=== PATIENT | male | born 1975 | race Caucasian/White ===

== ENCOUNTER → 2017-02-09 | Day surgery (SDC) | payer OTHER ==
[~2017-02-09] VITALS: Ht 175.3 cm; Wt 79.4 kg
[2017-02-09] VITALS (11 sets, daily range): BP systolic 109–135; BP diastolic 64–85
[~2017-02-09] MED LIST: Alfentanil 2ml Inj ONE; Atropine Inj 1mg/10ml Syr IV PRN; BUPROPION XL150 MG ORAL; BUTALBITAL25 GM MC; Bupivacaine w/Epi 0.25% 30ml Vial INJ ONE; CARISOPRODOL250 MG ORAL; CLONAZEPAM1 MG PO; D5 1/2NS 1,000 ML IV SCH; DESMOPRESSIN IV ONE; DIOVAN320 MG ORAL; Desmopressin (DDAVP) Inj IV ONE; Dexamethasone 4mg/ml vial ONE; DiphenhydrAMINE 50mg/ml Inj IVP PRN; EPINEPHrine 1mg/1ml Amp ONE; HYDROmorphone 1mg/ml Carpuject SUBQ PRN; Hydromorphone 0.5mg/0.5ml inj IVP PRN; Ketorolac 30mg Inj IV PRN; Ketorolac 60mg Inj IV PRN; LORazepam Inj 2mg/ml 1ml IV PRN; LR 1000ml 1,000 ML IVLG SCH; LR 1000ml ONE; Lidocaine 1% MPF 10mg/ml 5ml ONE; Meperidine 25mg/ml Inj IV PRN; Metoclopramide 10mg/2ml Inj IVP PRN; Midazolam 2mg/2ml Inj IVP PRN; Midazolam 2mg/2ml Inj ONE; NABUMETONE500 MG PO; NS IV ONE; NS Irrig 4000ml IRRIG ONE; PRAZOSIN HCL5 MG PO; Propofol 10mg/ml 20ml IV ONE; Ropivacaine 5mg/ml Vial 20ml INJ ONE; Sterile Water Irrig 1000ml IRRIG ONE; TRILEPTAL600 MG PO; ceFAZolin 1gm in D5W 55ml IVPB ONE; celeBREX 200mg Cap **SURGERY PATIENTS ONLY ORAL ONE; fentaNYL 100 mcg/2 mL IV PRN; oxyCONTIN 20mg tab ORAL ONE
--- NOTE | 2017-02-09 12:24 | Anethesia Preoperative Eval ---
Anesthesia Pre-op PMH/ROS General Date of Evaluation: Feb 09, 2017 Time of Evaluation: 13:17 Anesthesiologist: Cha ASA Score: ASA 2 Mallampati Score Class I : Soft palate, uvula, fauces, pillars visible Class II: Soft palate, uvula, fauces visible Class III: Soft palate, base of uvula visible Class IV: Only hard plate visible Mallampati Classification: Class II Surgeon: Toñito Diagnosis: R Shoulder Pain Surgical Procedure: R Shoulder Arthroscopy and Rotator cuff Repair Anesthesia History: none Family History: no anesthesia problems Allergies: Coded Allergies: ACETAMINOPHEN (Verified Allergy, Unknown, 02/08/17) Medications: see eMAR Past Medical History Neurologic/Psychiatric: Reports: depression/anxiety PSxH Narrative: R Shoulder SX Anesthesia Pre-op Phys. Exam Physician Exam Last Vital Signs Date Time Temp Pulse Resp B/P Pulse Ox O2 Delivery O2 Flow Rate FiO2 02/09/17 12:03 97.5 90 18 135/85 97 Room Air Constitutional: NAD Neurologic: CN 2-12 intact Cardiovascular: RRR Respiratory: CTA Gastrointestinal: S/NT/ND Airway Exam Mallampati Score: Class II MO: full ROM: limited Teeth: intact Anesthesia Pre-op A/P Risk Assessment & Plan Assessment: ASA 2 Plan: GA, BIS, R Supraclavicular Block Status Change Before Surgery: No Pre-Antibiotics Dru Gram Ancef IV Given Within 1 Hr of Incision: Yes Time Given: 13:41 Werner Eubanks MD Feb 09, 2017 12:24
--- NOTE | 2017-02-09 12:25 | Immediate Post-Op Evaluation ---
Immediate Post-Op Evalulation Immediate Post-Op Evalulation Procedure: R Shoulder Arthroscopy and Rotator cuff Repair Date of Evaluation: Feb 09, 2017 Time of Evaluation: 15:45 IV Fluids: 1000 LR Blood Products: 0 Estimated Blood Loss: 7 Urinary Output: 0 Blood Pressure Systolic: 122 Blood Pressure Diastolic: 68 Pulse Rate: 84 Respiratory Rate: 16 O2 Sat by Pulse Oximetry: 100 Temperature (Fahrenheit): 98.5 Pain Score (1-10): 1 Nausea: No Vomiting: No Complications 0 Patient Status: awake, reacts, patent, extubated, none Hydration Status: adequate Dru Gram Ancef IV Given Within 1 Hr of Incision: Yes Time Given: 13:41 Werner Eubanks MD Feb 09, 2017 12:25
--- NOTE | 2017-02-09 13:54 | Pre-Procedure Note/Attestation ---
Pre-Procedure Note/Attestation Complete Prior to Procedure Planned Procedure: right Procedure Narrative: shoulder disgnostic arthroscopy, RC repair, possible labral repair, sad Indications for Procedure Pre-Operative Diagnosis: right shoulder RCT Attestation I attest that I discussed the nature of the procedure; its benefits; risks and complications; and alternatives (and the risks and benefits of such alternatives ), prior to the procedure, with the patient (or the patient's legal sales representative gas service). I attest that, if there was a reasonable possibility of needing a blood transfusion, the patient (or the patient's legal sales representative gas service) was given the [facility] standardized written summary, pursuant to the [place] Blood Safety Act ([place] Health and Safety Code # 1645, as amended). I attest that I re-evaluated the patient just prior to the surgery and that there has been no change in the patient's H&P, except as documented below: SULEMA JOSE Feb 09, 2017 13:54
--- NOTE | 2017-02-09 13:55 | Operative Note - PDOC ---
Operative Note Operative Note Pre-op Diagnosis: right shoulder RCT Procedure: see op report Post-op Diagnosis: same as pre-op Operative Findings: consistent w/pre-op dx studies Anesthesia: regional Specimen: none Complications: none Condition: stable Estimated Blood Loss: none Implant(s) used?: Yes SULEMA JOSE Feb 09, 2017 13:55
--- NOTE | 2017-02-09 14:05 | 48 Hour Post Anesthesia Eval ---
Post Anesthesia Evaluation Procedure: R Shoulder Arthroscopy and Rotator cuff Repair Date of Evaluation: Feb 09, 2017 Time of Evaluation: 17:56 Blood Pressure Systolic: 131 0: 79 Pulse Rate: 82 Respiratory Rate: 18 Temperature (Fahrenheit): 98.6 O2 Sat by Pulse Oximetry: 98 Airway: patent Nausea: No Vomiting: No Pain Intensity: 1 Hydration Status: adequate Cardiopulmonary Status: Stable Mental Status/LOC: patient returned to baseline Follow-up Care/Observations: 0 Post-Anesthesia Complications: 0 Follow-up care needed: ready to discharge Werner Eubanks MD Feb 09, 2017 14:05
--- NOTE | 2017-02-10 00:58 | Operative Note - Dictated ---
DATE OF OPERATION: 02/09/2017 PREOPERATIVE DIAGNOSES: 1. Right shoulder rotator cuff tear. 2. Right shoulder possible labral tear. POSTOPERATIVE DIAGNOSIS: 1. Tear in anterior labrum. 2. Full-thickness rotator cuff tear. 3. Hypertrophic bursal tissue. PROCEDURES: 1. Right shoulder arthroscopic rotator cuff repair. 2. Extensive debridement of right shoulder. 3. Subacromial decompression bursectomy. SURGEON: Krishna Sibley M.D. ANESTHESIA: Interscalene with general. INDICATION FOR PROCEDURE: The patient is a pleasant gentleman, who has had significant right shoulder pain after being involved in an accident. He had an MRI, which showed concern for a full-thickness rotator cuff tear. He elected to undergo right shoulder arthroscopy and revision of rotator cuff repair. Risks, limitations, expectations, and complications of the procedure were discussed in detail. All questions were addressed. DESCRIPTION OF PROCEDURE: An informed consent was obtained. The patient was taken to the operative room and placed under interscalene general anesthesia. The patient was then carefully placed in the beach-chair position. The right shoulder was prepped and draped in a sterile manner. Time-out was performed. The portal sites were injected with 0.25% Marcaine with epinephrine. Inferolateral stab incision then made. Trocar was introduced into glenohumeral joint. There was some of the chondral damage, anterior labrum with subscap. The under surface of the rotator cuff was completely torn off the bone. At this point, the shaver was then placed in the lateral portal. The intra-articular debridement of the intra-articular labrum and biceps tendon was performed. Once that was done, the tissue or the bone lateral to the articular margin was debrided with soft tissue. Camera was then repositioned into the subacromial space. A complete bursectomy was performed. The bursal side of the rotator cuff. Gilbert was then placed. The mattress sutures were then placed along the lateral lower ankle. Once that was completed, the rotator cuff moved as a unit. Camera was repositioned into his shoulder joint and it seemed like the footprint was recreated. At this point, the instruments were removed. Portal sites were closed with 3-0 Monocryl suture. Steri-Strips and sterile dressing were applied. The patient was awoken and taken to the recovery room with stable vital signs. ESTIMATED BLOOD LOSS: Minimal. COMPLICATIONS: None. SPECIMENS: None. IMPLANTS: Include Biomet rotator cuff anchors. Krishna Sibley M.D. DR: DORINA JOB#: [id number] CC:
== END | disposition home or self-care (01) ==
LOC: SUR 11:15
DX: S46.011A Strain of muscle(s) and tendon(s) of the rotator cuff of right shoulder, initial encounter (principal); S43.431A Superior glenoid labrum lesion of right shoulder, initial encounter; V43.62XA Car passenger injured in collision with other type car in traffic accident, initial encounter; Y92.410 Unspecified street and highway as the place of occurrence of the external cause; Y99.9 Unspecified external cause status; D68.0 Von Willebrand disease; F39 Unspecified mood [affective] disorder; I10 Essential (primary) hypertension; F32.9 Major depressive disorder, single episode, unspecified; F41.9 Anxiety disorder, unspecified; Z88.6 Allergy status to analgesic agent
CPT/HCPCS: 29826; 29827; C1713; J0171; J0690; J1100; J1170; J2250; J2405; J2597; J2704; J2795; J3490; J7120; 94003; 94150

== ENCOUNTER → 2017-04-06 | Day surgery (SDC) | payer OTHER ==
[2017-04-06] VITALS (9 sets, daily range): BP systolic 104–123; BP diastolic 51–67
[~2017-04-06] VITALS: Ht 175.3 cm; Wt 78.5 kg
[~2017-04-06] MED LIST changes: -Dexamethasone 4mg/ml vial ONE; +Dexamethasone Elixir 0.25mg/2.5ml ONE; +HYDROMORPHONE HC4 M1 PO; +Meperidine 25mg/0.5ml Inj IV PRN; -Meperidine 25mg/ml Inj IV PRN; +Norco 5mg/325mg tab ORAL PRN; +OXYCONTIN30 MG ORAL; +SYNTHROID137 MCG ORAL; -Sterile Water Irrig 1000ml IRRIG ONE; +Tylenol #3 tab (300mg/30mg) ORAL PRN; +ceFAZolin 1gm in D5W 55ml IVP ONE; -ceFAZolin 1gm in D5W 55ml IVPB ONE
--- NOTE | 2017-04-06 11:16 | Anethesia Preoperative Eval ---
Anesthesia Pre-op PMH/ROS General Date of Evaluation: Apr 06, 2017 Time of Evaluation: 14:43 Anesthesiologist: Cha ASA Score: ASA 3 Mallampati Score Class I : Soft palate, uvula, fauces, pillars visible Class II: Soft palate, uvula, fauces visible Class III: Soft palate, base of uvula visible Class IV: Only hard plate visible Mallampati Classification: Class II Surgeon: Toñito Diagnosis: L Shoulder Pain Surgical Procedure: L Shoulder Atrhroscopy Anesthesia History: none Family History: no anesthesia problems Allergies: Coded Allergies: ACETAMINOPHEN (Verified Allergy, Unknown, 02/08/17) Medications: see eMAR Past Medical History Endocrine: Reports: hypothyroidism Hematology/Immune: Reports: other - Von Willebrands, Thyroid CA PSxH Narrative: Cervical Spine SX, R Shoulder RCR, Thyroidectomy Anesthesia Pre-op Phys. Exam Physician Exam Last Vital Signs Date Time Temp Pulse Resp B/P Pulse Ox O2 Delivery O2 Flow Rate FiO2 04/06/17 10:56 97.2 80 20 112/67 96 Room Air Constitutional: NAD Neurologic: CN 2-12 intact Cardiovascular: RRR Respiratory: CTA Gastrointestinal: S/NT/ND Airway Exam Mallampati Score: Class II MO: limited ROM: limited Teeth: intact Anesthesia Pre-op A/P Risk Assessment & Plan Assessment: ASA 3 Plan: GA, BIS, L Supraclavicular Block Status Change Before Surgery: No Pre-Antibiotics Dru Grams Ancef IV Given Within 1 Hr of Incision: Yes Time Given: 15:16 Werner Eubanks MD Apr 06, 2017 11:15
--- NOTE | 2017-04-06 14:16 | Pre-Procedure Note/Attestation ---
Pre-Procedure Note/Attestation Complete Prior to Procedure Planned Procedure: left Procedure Narrative: shoulder arthroscopy, p[ossible labral repair, possible rc repair Indications for Procedure Pre-Operative Diagnosis: left shoulder labral tear, left shoulder rct Attestation I attest that I discussed the nature of the procedure; its benefits; risks and complications; and alternatives (and the risks and benefits of such alternatives ), prior to the procedure, with the patient (or the patient's legal major account representative). I attest that, if there was a reasonable possibility of needing a blood transfusion, the patient (or the patient's legal major account representative) was given the [facility] standardized written summary, pursuant to the Bony [place] Blood Safety Act ([place] Health and Safety Code # 1645, as amended). I attest that I re-evaluated the patient just prior to the surgery and that there has been no change in the patient's H&P, except as documented below: SULEMA JOSE Apr 06, 2017 14:16
--- NOTE | 2017-04-06 15:34 | Immediate Post-Op Evaluation ---
Immediate Post-Op Evalulation Immediate Post-Op Evalulation Procedure: L Shoulder Arthroscopy Date of Evaluation: Apr 06, 2017 Time of Evaluation: 16:59 IV Fluids: 1200 LR Blood Products: 0 Estimated Blood Loss: 7 Urinary Output: 0 Blood Pressure Systolic: 106 Blood Pressure Diastolic: 56 Pulse Rate: 80 Respiratory Rate: 16 O2 Sat by Pulse Oximetry: 98 Temperature (Fahrenheit): 98.4 Pain Score (1-10): 1 Nausea: No Vomiting: No Complications 0 Patient Status: awake, reacts, patent, extubated, none Hydration Status: adequate Dru Grams Ancef IV Given Within 1 Hr of Incision: Yes Time Given: 15:16 Werner Eubanks MD Apr 06, 2017 15:34
--- NOTE | 2017-04-06 16:36 | Operative Note - PDOC ---
Operative Note Operative Note Pre-op Diagnosis: left shoulder labral tear, left shoulder rct Procedure: see op report Post-op Diagnosis: same as pre-op plus Operative Findings: consistent w/pre-op dx studies Anesthesia: general Specimen: none Complications: none Condition: stable Estimated Blood Loss: none Implant(s) used?: Yes SULEMA JOSE Apr 06, 2017 16:36
--- NOTE | 2017-04-06 16:51 | 48 Hour Post Anesthesia Eval ---
Post Anesthesia Evaluation Procedure: L Shoulder Arthroscopy Date of Evaluation: Apr 06, 2017 Time of Evaluation: 19:11 Blood Pressure Systolic: 124 0: 76 Pulse Rate: 82 Respiratory Rate: 18 Temperature (Fahrenheit): 98.6 O2 Sat by Pulse Oximetry: 99 Airway: patent Nausea: No Vomiting: No Pain Intensity: 1 Hydration Status: adequate Cardiopulmonary Status: Stable Mental Status/LOC: patient returned to baseline Follow-up Care/Observations: 0 Post-Anesthesia Complications: 0 Follow-up care needed: ready to discharge Werner Eubanks MD Apr 06, 2017 16:51
--- NOTE | 2017-04-07 01:00 | Operative Note - Dictated ---
DATE OF OPERATION: 04/06/2017 PREOPERATIVE DIAGNOSES: 1. Left shoulder labral tear. 2. Left shoulder partial rotator cuff tear. 3. Impingement syndrome. POSTOP DIAGNOSES: 1. Left shoulder labral tear. 2. Left shoulder partial rotator cuff tear. 3. Impingement syndrome. PROCEDURE: 1. Left shoulder diagnostic arthroscopy. 2. Extensive intra-articular debridement. 3. Left shoulder SLAP repair. 4. Left shoulder subacromial decompression bursectomy. SURGEON: Krishna Sibley M.D. ANESTHESIA: Interscalene with general. INDICATION FOR PROCEDURE: The patient is a pleasant gentleman who has left shoulder pain. The patient subsequently failed conservative treatment and elected to undergo left shoulder arthroscopic diagnostic arthroscopy and possible SLAP repair with concurrent subacromial decompression bursectomy. Risks, limitations, expectations and complication of the procedure were discussed in detail. All questions were addressed. DESCRIPTION OF PROCEDURE: An informed consent was obtained. The patient was brought to the operating room and placed under monitored anesthesia control and general interscalene anesthesia block placed. The patient was carefully positioned under beach chair position. Left shoulder prepped and draped in a sterile manner. Time-out was performed. The portal sites injected with 0.25% Marcaine with epinephrine. Inferolateral stab incision then made. Trocar introduced in the glenohumeral joint. Of note, there is a tear in the superior labral detachment of the superior labrum with positive peel back sign. The anterior labrum appeared to be intact. The biceps tendon and the undersurface of the rotator cuff was grossly intact. No intra-articular loose bodies. At this point, a trocar was placed through the rotator interval. The superior glenoid was debrided of any soft tissues. Arthroscopic anchor was then placed and the superior labrum was reattached to the glenoid. Once that was done, the superior glenoid was again probed and noted to be stable. Posterior labrum was intact. At this point, the camera was placed in subacromial space. There was hypertrophic bursal tissue. The acromion was indenitified. Undersurface of the acromion was identified and acromioplasty starting from lateral to medial and completed from the posterior to anterior. Once that was done, the bursectomy was completed at the anterior lateral and posterior aspect of the subdeltoid space. Once that was done, the bursal side of the rotator cuff was evaluated and noted to be intact. At this point, the instruments removed. Portal sites were closed with 3-0 Monocryl sutures. Steri-Strips and a sterile dressing were applied. The patient was awoken and taken to recovery room with stable signs. ESTIMATED BLOOD LOSS: Minimal. COMPLICATION: None. SPECIMENS: None. IMPLANTS: Biomet Juggernaut anchor . Krishna Sibley M.D. DR: Kaylah JOB#: [id number] CC: WILLIE
--- NOTE | 2017-04-09 22:31 | Pre-op HX & Phy Repo 2 SIG ---
DATE OF ADMISSION: 04/06/2017 PREOPERATIVE MEDICAL CLEARANCE HISTORY OF PRESENT ILLNESS: The patient is a pleasant gentleman, who is well known to me. He underwent a right shoulder arthroscopic rotator cuff repair approximately 6 weeks ago. At that time, he was medically cleared by Dr. Gross. The patient reports that since his last surgery, really no significant changes in his medical status. He recently underwent a hand surgery, which he had no issues for. He was seen by medical doctor for that surgery. He also had a resection of the thyroid prior to that. He had no issues with clearance for in either the thyroid surgery or the hand surgery. He is now here for his left shoulder arthroscopic procedure. The patient does have pain and discomfort in the left arm and shoulder. The patient denies any chest pain. No shortness of breath. PAST MEDICAL HISTORY: Depression, hypertension, and Von Willebrand syndrome. PAST SURGICAL HISTORY: Right shoulder arthroscopic procedure x2, left hand surgery, previous second digit amputation. FAMILY HISTORY: Significant for Graves disease and hypertension. SOCIAL HISTORY: The patient is . Does not smoke or drink. He lives in [place]. PHYSICAL EXAMINATION: GENERAL: The patient is alert and oriented in bed. HEART: Regular rate and rhythm. ABDOMEN: Soft. EXTREMITIES: Right shoulder incisions are clean, dry, and intact. Left shoulder examination shows pain on the anteriorlateral of the acromion process. Positive [place] test and positive impingement sign. ASSESSMENT: Left shoulder superior labral from anterior to posterior tear. DISCUSSION: At this point, he really has many medical changes in his history prior to this procedure. He had 2 additional surgeries for which he got medical clearance for with no issues. Therefore, it is not medically reasonable to repeat his preop medical clearance at this point. We are going to continue with the same recommendations previously given by Dr. Gross for his right shoulder. We are going to give him DDAVP prior to surgery. The patient understands that I am not a medical doctor and medical evaluation is not part of my normal routine, however, in this case, I feel comfortable enough to proceed with surgery based on the fact and he reports anyway no issues with his 2 previous surgeries just recently and he has no other medical issues lately. Krishna Sibley M.D. DR: ILAN JOB#: [id number] CC: WILLIE
== END | disposition home or self-care (01) ==
LOC: SUR 10:21
DX: S43.432A Superior glenoid labrum lesion of left shoulder, initial encounter (principal); X58.XXXA Exposure to other specified factors, initial encounter; Y92.89 Other specified places as the place of occurrence of the external cause; Y99.9 Unspecified external cause status; M75.102 Unspecified rotator cuff tear or rupture of left shoulder, not specified as traumatic; M75.42 Impingement syndrome of left shoulder; I10 Essential (primary) hypertension; D68.0 Von Willebrand disease; E89.0 Postprocedural hypothyroidism; Z85.850 Personal history of malignant neoplasm of thyroid; F32.9 Major depressive disorder, single episode, unspecified; Z88.6 Allergy status to analgesic agent
CPT/HCPCS: 29807; 29826; J0171; J0690; J2250; J2405; J2597; J2704; J2795; J3490; J7120; 94003; 94150; C1713

== ENCOUNTER 2017-05-21 05:25 | Inpatient (IN) | payer OTHER ==
[2017-05-18 14:48] LABS: ANION GAP 8 (5-15); CALCIUM 9.5 mg/dL (8.6-10.2); CARBON DIOXIDE 32 mEQ/L (20-30); CHLORIDE 93 mEQ/L (98-107); CREATININE 1.2 mg/dL (0.7-1.2); GLOMERULAR FILTRATION RATE > 60 mL/min (>60); HEMOLYSIS 3; POTASSIUM 4.9 mEQ/L (3.4-4.9); SODIUM 133 mEQ/L (135-145)
[2017-05-21] VITALS (21 sets, daily range): BP systolic 110–139; BP diastolic 59–79
[~2017-05-21] VITALS: Ht 175.3 cm; Wt 77.1 kg
[~2017-05-21 05:25] MED LIST changes: -Alfentanil 2ml Inj ONE; -Atropine Inj 1mg/10ml Syr IV PRN; -Bupivacaine w/Epi 0.25% 30ml Vial INJ ONE; -D5 1/2NS 1,000 ML IV SCH; -DESMOPRESSIN IV ONE; -Desmopressin (DDAVP) Inj IV ONE; -Dexamethasone Elixir 0.25mg/2.5ml ONE; -DiphenhydrAMINE 50mg/ml Inj IVP PRN; -EPINEPHrine 1mg/1ml Amp ONE; -HYDROmorphone 1mg/ml Carpuject SUBQ PRN; -Hydromorphone 0.5mg/0.5ml inj IVP PRN; -Ketorolac 30mg Inj IV PRN; -Ketorolac 60mg Inj IV PRN; -LORazepam Inj 2mg/ml 1ml IV PRN; -LR 1000ml 1,000 ML IVLG SCH; -LR 1000ml ONE; -Lidocaine 1% MPF 10mg/ml 5ml ONE; -Meperidine 25mg/0.5ml Inj IV PRN; -Metoclopramide 10mg/2ml Inj IVP PRN; -Midazolam 2mg/2ml Inj IVP PRN; -Midazolam 2mg/2ml Inj ONE; -NS IV ONE; -NS Irrig 4000ml IRRIG ONE; -Norco 5mg/325mg tab ORAL PRN; -Propofol 10mg/ml 20ml IV ONE; -Ropivacaine 5mg/ml Vial 20ml INJ ONE; -Tylenol #3 tab (300mg/30mg) ORAL PRN; -ceFAZolin 1gm in D5W 55ml IVP ONE; -celeBREX 200mg Cap **SURGERY PATIENTS ONLY ORAL ONE; -fentaNYL 100 mcg/2 mL IV PRN; -oxyCONTIN 20mg tab ORAL ONE
[2017-05-21] MEDS ORDERED: Dexamethasone 4mg/ml vial IVP ONE (06:00)
[2017-05-21] MEDS ORDERED: ceFAZolin 1gm in D5W 55ml IVP ONE (06:00)
[2017-05-21] MEDS ORDERED: DESMOPRESSIN IV ONE (06:30)
[2017-05-21] MEDS ORDERED: NS IV ONE (06:30)
[2017-05-21] MEDS ORDERED: Propofol 10mg/ml 100ml btl IV ONE (07:00)
[2017-05-21] MEDS ORDERED: Thrombin 5000 units TOPIC ONE (07:00)
[2017-05-21] MEDS ORDERED: Glycopyrrolate 0.2mg/ml 1ml Vial ONE (07:00)
[2017-05-21] MEDS ORDERED: Lidocaine 1% MPF 10mg/ml 5ml ONE (07:00)
[2017-05-21] MEDS ORDERED: Sterile Water Irrig 1000ml IRRIG ONE (07:00)
[2017-05-21] MEDS ORDERED: Lidocaine 1% Plain 30 ml INJ ONE (07:00)
[2017-05-21] MEDS ORDERED: Vancomycin 1gm inj IVPB ONE (07:00)
[2017-05-21] MEDS ORDERED: fentaNYL 250mcg/5ml ONE (07:00)
[2017-05-21] MEDS ORDERED: LR 1000ml ONE (07:00)
[2017-05-21] MEDS ORDERED: Bacitracin 50000 Units Vial IRRIG ONE (07:00)
[2017-05-21] MEDS ORDERED: NS Irrig 1000ml ONE (07:00)
[2017-05-21] MEDS ORDERED: Surgicel 4in x 8in TOPIC ONE (07:00)
[2017-05-21] MEDS ORDERED: Zemuron 50mg/5ml Inj ONE (07:00)
[2017-05-21] MEDS ORDERED: Neostigmine 1mg/ml 10ml Inj ONE (07:00)
[2017-05-21] MEDS ORDERED: Zemuron 50mg/5ml Inj IV ONE (07:00)
[2017-05-21] MEDS ORDERED: fentaNYL 100 mcg/2 mL IV ONE (07:00)
[2017-05-21] MEDS ORDERED: LR 1000ml 1,000 ML IVLG SCH (07:11)
--- NOTE | 2017-05-21 07:13 | Anethesia Preoperative Eval ---
Anesthesia Pre-op PMH/ROS General Date of Evaluation: May 21, 2017 Time of Evaluation: 07:06 Anesthesiologist: Cha ASA Score: ASA 3 Mallampati Score Class I : Soft palate, uvula, fauces, pillars visible Class II: Soft palate, uvula, fauces visible Class III: Soft palate, base of uvula visible Class IV: Only hard plate visible Mallampati Classification: Class II Surgeon: Faizan Diagnosis: Neck Pain Surgical Procedure: ACDF C4-5, C5-6 Anesthesia History: none Family History: no anesthesia problems Allergies: Coded Allergies: ACETAMINOPHEN (Verified Allergy, Unknown, 02/08/17) Medications: see eMAR Past Medical History Cardiovascular: Reports: HTN Endocrine: Reports: hypothyroidism - Throid CA Hematology/Immune: Reports: bleeding disorder - Von Willebrands PSxH Narrative: Thyroidectomy, Cervical SX X2, R Shoulder, L hand SX Anesthesia Pre-op Phys. Exam Physician Exam Last Vital Signs Date Time Temp Pulse Resp B/P Pulse Ox O2 Delivery O2 Flow Rate FiO2 05/21/17 05:56 98.4 79 20 139/64 97 Room Air Constitutional: NAD Neurologic: CN 2-12 intact Cardiovascular: RRR Respiratory: CTA Gastrointestinal: S/NT/ND Airway Exam Mallampati Score: Class II MO: full ROM: limited Teeth: intact Anesthesia Pre-op A/P Risk Assessment & Plan Assessment: ASA 3 Plan: GA, BIS, Glidescope, DDAVP 1/2 hr pre surgery Status Change Before Surgery: No Pre-Antibiotics Dru Grams Ancef IV Given Within 1 Hr of Incision: Yes Time Given: 07:16 Werner Ebuanks MD May 21, 2017 07:13
[2017-05-21] MEDS ORDERED: oxyCODONE HCL/Acetaminophen 5/325mg ORAL PRN (07:15)
[2017-05-21] MEDS ORDERED: Meperidine 25mg/0.5ml Inj (FOR RIGORS ONLY) IV PRN (07:15)
[2017-05-21] MEDS ORDERED: Ketorolac 30mg Inj IV PRN (07:15)
[2017-05-21] MEDS ORDERED: Atropine Inj 1mg/10ml Syr IV PRN (07:15)
[2017-05-21] MEDS ORDERED: Norco 5mg/325mg tab ORAL PRN (07:15)
[2017-05-21] MEDS ORDERED: Norco 7.5mg/325mg tab ORAL PRN (07:15)
[2017-05-21] MEDS ORDERED: DiphenhydrAMINE 50mg/ml Inj IVP PRN (07:15)
[2017-05-21] MEDS ORDERED: fentaNYL 100 mcg/2 mL IV PRN (07:15)
[2017-05-21] MEDS ORDERED: Metoclopramide 10mg/2ml Inj IVP PRN (07:15)
[2017-05-21] MEDS ORDERED: Ketorolac 60mg Inj IV PRN (07:15)
--- NOTE | 2017-05-21 07:29 | Pre-Procedure Note/Attestation ---
Pre-Procedure Note/Attestation Complete Prior to Procedure Planned Procedure: not applicable Procedure Narrative: ADR C4-C5, possible ACDF possible ACDF C5-6 Excision pseudarthrosis C6-7, ACDF Possible osterior lateral mass instrumentation C5-6-7 Possible Anterior plate fixation C6-C7, Possible C5-6-7 Indications for Procedure Pre-Operative Diagnosis: HNP C4-5 Trauma Possible fx post trauma fx adr C5-6 Fx Pseudarthrosis C6-7 Attestation I attest that I discussed the nature of the procedure; its benefits; risks and complications; and alternatives (and the risks and benefits of such alternatives ), prior to the procedure, with the patient (or the patient's legal human resources hr representative). I attest that, if there was a reasonable possibility of needing a blood transfusion, the patient (or the patient's legal human resources hr representative) was given the [place] [facility] standardized written summary, pursuant to the [place]ony [place] Blood Safety Act ([place] Health and Safety Code # 1645, as amended). I attest that I re-evaluated the patient just prior to the surgery and that there has been no change in the patient's H&P, except as documented below: ANGELITA SOL May 21, 2017 07:28
--- NOTE | 2017-05-21 08:21 | Immediate Post-Op Evaluation ---
Immediate Post-Op Evalulation Immediate Post-Op Evalulation Procedure: ACDF C4-5, C5-6 Date of Evaluation: May 21, 2017 Time of Evaluation: 11:17 IV Fluids: 1500 LR Blood Products: 0 Estimated Blood Loss: 50 Urinary Output: 50 Blood Pressure Systolic: 124 Blood Pressure Diastolic: 60 Pulse Rate: 101 Respiratory Rate: 16 O2 Sat by Pulse Oximetry: 99 Temperature (Fahrenheit): 97.8 Pain Score (1-10): 3 Nausea: No Vomiting: No Complications 0 Patient Status: awake, reacts, patent, extubated, none Hydration Status: adequate Dru Grams Ancef IV Given Within 1 Hr of Incision: Yes Time Given: 07:06 eWrner Eubanks MD May 21, 2017 08:21
[2017-05-21] MEDS ORDERED: Acetaminophen (Non formulary) 100 ML IV ONE (10:15)
[2017-05-21] MEDS: Hydromorphone 0.5mg/0.5ml inj IVP PRN ×4 (11:31→12:36)
--- NOTE | 2017-05-21 11:42 | Brief Operative Note ---
Immediate Post Operative Note Operative Note Pre-op Diagnosis: HNP C4-5 Trauma Possible fx post trauma fx adr C5-6 Fx Pseudarthrosis C6-7 Procedure: C4-5: ADR C5-6: exploration fusion. C6-7: Hemivertebrectomy C6, C7 Scar Xray SSEP Interbody Reconstruction / Fusion Internal Fixation Correction Deformity, Graft Material, Anterior Plate Fixation Collar Microscope Post-op Diagnosis: same as pre-op Findings: consistent w/pre-op dx studies Surgeon: Faizan SINGER Complaint Evaluation Supervisor: Forrest ELI Anesthesiologist: Cha Anesthesia: general Specimen: none Complications: none Condition: stable Estimated Blood Loss: minimal Implant(s) used?: Yes ANGELITA SOL May 21, 2017 11:42
[2017-05-21] MEDS ORDERED: Naloxone 0.4mg/ml Inj IVP PRN (11:45)
[2017-05-21] MEDS ORDERED: HYDROmorphone 1mg/ml Carpuject SUBQ PRN ×2 (11:45→16:15)
[2017-05-21] MEDS: LORazepam Inj 2mg/ml 1ml IV PRN ×2 (12:13→12:38)
[2017-05-21] MEDS: Midazolam 2mg/2ml Inj IVP PRN ×2 (12:22→12:44)
[2017-05-21] MEDS ORDERED: Hydromorphone 0.5mg/0.5ml inj ONE (13:00)
[2017-05-21] MEDS ORDERED: D5 1/2NS 1,000 ML IV SCH (13:00)
[2017-05-21] MEDS ORDERED: HYDROmorphone 1mg/ml Carpuject SUBQ ONE (13:00)
[2017-05-21] MEDS ORDERED: PCA HYDROmorphone 30mg/30ml Syr IV PRN (13:30)
[2017-05-21] MEDS ORDERED: Rate Change PCA 1 Each MISC PRN (13:30)
[2017-05-21] MEDS ORDERED: ceFAZolin sod 1 GM in D5W 55 ML IV SCH (15:15)
[2017-05-21] MEDS ORDERED: LORazepam 1mg tab ORAL PRN (16:15)
[2017-05-21] MEDS ORDERED: Naloxone 0.4mg/ml Inj IVP ONE (16:30)
[2017-05-21] MEDS ORDERED: Milk of Magnesia 30ml Ud ORAL PRN (16:30)
[2017-05-21] MEDS ORDERED: Norco 10mg/325mg tab ORAL PRN (16:30)
[2017-05-21] MEDS ORDERED: oxyCODONE 15mg IR tab ORAL PRN (16:30)
[2017-05-21] MEDS ORDERED: Docusate 100mg cap ORAL SCH (18:00)
[2017-05-21] MEDS ORDERED: PCA shift volume MISC SCH (19:00)
[2017-05-21] MEDS ORDERED: Pantoprazole Inj IVP SCH (21:00)
--- NOTE | 2017-05-21 21:45 | Operative Note - Dictated ---
DATE OF OPERATION: 05/21/2017 ADMITTING/PREOPERATIVE DIAGNOSES: Posttraumatic cervical herniated nucleus pulposus, cervicogenic neck pain, and fracture, cervical spine. POSTOPERATIVE DIAGNOSES: Posttraumatic cervical herniated nucleus pulposus, cervicogenic neck pain, and fracture, cervical spine. SURGEON: Aaron Gloria, Ph.D. M.D. DRIVE IN TELLER: ALCIRA Segovia ANESTHESIOLOGIST: Werner Eubanks M.D. ANESTHESIA: General with intubation. ESTIMATED BLOOD LOSS: Minimal. OPERATIVE PROCEDURES: 1. C4-C5 artificial disc replacement, decompression spinal cord. 2. C5-C6: Exploration fusion mass/artificial disc. 3. C6-C7 operation to scar tissue excision, pseudoarthrosis with hemivertebrectomy, inferior C6 hemivertebrectomy, superior C7 interbody reconstruction, Aero-C titanium/PEEK. Correction deformity. Internal fixation. Application of osteogenic material within graft for fusion C6-C7. Anterior internal plate fixation C6-C7. SSEP monitoring, high-power microscopic dissection, intraoperative fluoroscopy interpreted by surgeon. Operation to scar tissue, application of cervical collar. DESCRIPTION OF PROCEDURE: The patient was brought to the operating room, and in the supine position, general anesthesia with intubation was induced. A 10 mg IV Decadron and 2 g IV Ancef were administered 30 minutes prior to incision time. After appropriate position in the supine position, markers were placed on the contralateral aspect of the cervical spine. A cross-table fluoroscopic image was obtained demonstrating correct level for incision placement. Transverse incision was deemed inappropriate without ability to adequately gain access to the C4-C5, C5-C6, and C6-C7 interval. A longitudinal incision of the appropriate length paralleling the medial aspect of the right sternocleidomastoid muscle was utilized. Anterior cervical spine was sterilely prepped and draped free in the usual sterile fashion. Anterior incision medial to the sternocleidomastoid muscle right was sharply placed in the dermis and epidermis over the appropriate intervals. Electrocautery dissection was carried through the subcutaneous tissue to the level of the platysmas muscle. This was identified, isolated, and transected in line with the incision. Blunt dissection was carried through the deep cervical and pretracheal fascia to the midline between the right and left longus coli muscles. Scar tissue encountered at the C5-C6 and C6-C7 interval. Elevation of the longus coli muscle and scar tissue in a subperiosteal fashion. C4-C5: Anterior osteophyte was resected with Midas Roman bur dissection. Diskectomy performed with annulotomy to, but not through the posterior longitudinal ligament. Traction pins placed. Posterior longitudinal ligament resected. Decompression of spinal cord. Aero-C containing osteoinductive protein of the appropriate dimensions was placed with internal deployment of wings for internal fixation. Fit excellent. Fluoroscopic guidance utilized. SSEP monitoring stable and transected in line with the incision. Dissection was carried through scar tissue. Deep cervical fascia and pretracheal fascia to the midline between the right and left longus colli muscles exceeding from C4-C5, to the C6-C7 interval. Scar tissue encountered and dissected appropriately in a subperiosteal fashion. No laceration evident of vital structures. C4-C5: Interval confirmed with placement of a spinal needle bent at 90 degree angle, so as to avoid penetration greater than 3 mm into the space. Cross-table fluoroscopic image obtained demonstrating the correct level. Level marked. Needle removed. Subperiosteal dissection of the longus coli muscles. Annulotomy performed with diskectomy. Dissection of the posterior longitudinal ligament. Appropriately dimensioned artificial disc replacement, Prestige placed. Excellent alignment fitting. Placement of disc entailed drilling appropriately cephalad caudad of the vertebral body followed with appropriate osteotomies with cutters followed with interpositional grafting/placement of the artificial disk. Fluoroscopic imaging and direct observation revealed excellent alignment. Bleeding bone was cauterized with application of sterile wax. Distraction pin holes were utilized and cauterized with application of sterile wax. Attention was turned to the C5-C6 interval. Exploration revealed intact large contiguous bridging osteophyte over the previously placed artificial disc. No gross motion noted. Attention was turned to the C6-C7 interval. Large anterior osteophytes resected with Midas Roman bur dissection under high-power magnification to the anterior cortical line of the vertebra above and below the interval. Hemivertebrectomy was performed under high-power magnification, inferior C6 superior C7 to the level of the posterior vertebral body cortex with fluoroscopic guidance. Correction of kyphosis to lordosis was undertaken with interpositional graft into the appropriately dimensioned Aero-C Titanium/PEEK graft with hindu of lordosis. Graft containing osteopromotive material for fusion. Internal fixation with the portable wings cephalad caudad into the vertebral bodies. All traction on the neck removed. Anterior internal plate fixation in a compressive fashion undertaken with 17 mm screws. Purchase excellent. Fluoroscopic guidance/imaging demonstrated excellent alignment. Deemed stable, not requiring posterior instrumentation. Wound was irrigated with antibiotic-containing saline. Exploration did not reveal any excoriation or laceration of vital structures. SSEP monitoring stable. FloSeal applied followed with 0.25 g of vancomycin powder. This was after copious irrigation with antibiotic-containing saline. Sequential reapproximation of Vicryl suture material of the platysmas muscle and subcutaneous tissue. Surgical strips applied. Sterile bandage applied to maintain place with tape. Cervical collar medium applied prior to awakening and extubation of the patient on the operating table. The patient was transported to postop recovery in good stable condition. Of note, is that the incision was dressed sterilely with transverse surgical strips followed with application of sterile gauze maintained in place of tape. Aaron Gloria M.D. DR: CLINTON JOB#: [id number] CC:
--- NOTE | 2017-05-22 09:04 | Diagnostic Imaging Report ---
Indication: Neck Pain Findings: Fluoroscopic views of the cervical spine were obtained. Intraoperative imaging during cervical spine surgery showing multilevel discectomy at C4-5 and C5-6, C6-7, anterior fusion at C6-7. Impression: Intraoperative imaging
[2017-05-22 09:43] VITALS: BP 116/66
--- NOTE | 2017-05-22 09:43 | 48 Hour Post Anesthesia Eval ---
Post Anesthesia Evaluation Procedure: ACDF C4-5, C5-6 Date of Evaluation: May 22, 2017 Blood Pressure Systolic: 116 0: 66 Pulse Rate: 105 Respiratory Rate: 20 Temperature (Fahrenheit): 97.2 O2 Sat by Pulse Oximetry: 98 Airway: patent Nausea: No Vomiting: No Pain Intensity: 00 Hydration Status: adequate Cardiopulmonary Status: Stable Mental Status/LOC: patient returned to baseline - Patient discharged Follow-up Care/Observations: Patient has been discharged to be followed up by surgeon Post-Anesthesia Complications: No anesthetic complication Follow-up care needed: N/A CHLOE LACKEY M.D. May 22, 2017 09:43
--- NOTE | 2017-05-22 11:53 | Discharge Summary ---
Discharge Summary Hospital Course Date of Admission May 21, 2017 at 05:25 Date of Discharge May 21, 2017 at 18:48 Admitting Diagnosis Posttraumatic herniated nucleus pulposa C4-5. Possible post traumatic fracture adr C5-6, fracture Pseudarthrosis C6-7, cervicogenic neck pain Reason for Hospitalization: elective surgery HPI Brian Bryan is a 41 year old male who was admitted on May 21, 2017 at 05:25 for posttraumatic herniated nucleus pulposa C4-5. Possible post traumatic fracture adr C5-6, fracture Pseudarthrosis C6-7, cervicogenic neck pain for elective surgery Procedures 05/21/17 s/p by dr Gloria T 1. C4-C5 artificial disc replacement, decompression spinal cord. 2. C5-C6: Exploration fusion mass/artificial disc. 3. C6-C7 operation to scar tissue excision, pseudoarthrosis with archie-vertebrectomy, inferior C6 archie-vertebrectomy, superior C7 interbody reconstruction, Aero-C titanium/PEEK. Correction deformity. Internal fixation. Application of osteogenic material within graft for fusion C6-C7. Anterior internal plate fixation C6-C7. SSEP monitoring, high-power microscopic dissection, intraoperative fluoroscopy interpreted by surgeon. Operation to scar tissue, application of cervical collar. Hospital Course s/p surgery pain controlled ambulated with PT, voided freely tolerated liquid diet neurovascular intact dressing intact, no drainage cleared for dc home fup with surgeon as outpatient FINAL DIAGNOSIS HNP C4-5 posttraumatic Possible fx post trauma fx adr C5-6 Fx Pseudarthrosis C6-7 cervicogenic neck pain s/p C4-5: ADR, C5-6: exploration fusion, C6-7: Archie-vertebrectomy C6, C7, Interbody Reconstruction / Fusion Internal Fixation Correction Deformity, Graft Material, Anterior Plate Fixation , Collar, Microscope Discharge Medications Continued Medications: Bupropion Xl* (Bupropion Xl*) 150 Mg Tab.er.24h 300 MG ORAL Q24H, TAB 0 Refills Clonazepam (Clonazepam) 1 Mg Tablet 1 MG PO, TAB Hydromorphone Hcl (Hydromorphone Hcl) 4 Mg Tablet 4 MG PO TID, TAB Levothyroxine Sodium (Synthroid) 137 Mcg Tablet 137 MCG ORAL DAILY, TAB Take in the morning on an empty stomach, at least 30 minutes before food. Oxcarbazepine* (Trileptal*) 600 Mg Tablet 150 MG PO ONCE, TAB Oxycodone Hcl (Oxycontin) 30 Mg Tab.er.12h 30 MG ORAL EVERY 12 HOURS, TAB Prazosin Hcl (Prazosin Hcl) 5 Mg Capsule 5 MG PO, CAP Valsartan (Diovan) 320 Mg Tablet 320 MG ORAL DAILY, TAB Discharge Condition Upon Discharge: stable Discharge Disposition Patient was discharged to Home (01) Discharge Diagnoses: Discharge Instructions Discharge Instructions Special Instructions I have been assigned to complete a D/C Summary on this account. I was not involved in the patient management Soco Barron NP (Vanchtein) May 22, 2017 11:53
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
== END 2017-05-21 18:48 | disposition home or self-care (01) | DRG 472 ==
LOC: SDSOVERFLO 05:25 → 3E 13:56
PROC: 0RG10A0 Fusion of Cervical Vertebral Joint with Interbody Fusion Device, Anterior Approach, Anterior Column, Open Approach (ICD-10-PCS; principal; 2017-05-21 07:00)
PROC: 0RR30JZ Replacement of Cervical Vertebral Disc with Synthetic Substitute, Open Approach (ICD-10-PCS; principal; 2017-05-21 07:00)
DX: M50.221 Other cervical disc displacement at C4-C5 level (principal); M96.0 Pseudarthrosis after fusion or arthrodesis; D68.0 Von Willebrand disease; Y83.8 Other surgical procedures as the cause of abnormal reaction of the patient, or of later complication, without mention of misadventure at the time of the procedure; S12.9XXD Fracture of neck, unspecified, subsequent encounter; X58.XXXD Exposure to other specified factors, subsequent encounter; I10 Essential (primary) hypertension; Z85.850 Personal history of malignant neoplasm of thyroid; J45.998 Other asthma; E89.0 Postprocedural hypothyroidism; F43.10 Post-traumatic stress disorder, unspecified
CPT/HCPCS: 36415; 72040; 76001; 80048; 86850; 86900; 86901; G0378; J2180; J2250; J2405; J2710